=== PATIENT | male | born 1970 | race Caucasian/White ===

== ENCOUNTER 2019-11-27 08:34 | Day surgery (SDC) | payer OTHER ==
[~2019-11-27] VITALS: Ht 177.8 cm; Wt 91.6 kg
[~2019-11-27 08:34] MED LIST: ATOR1TAB19 PO; HYDR12.55 PO; NS 1,000 ML IV ONE
[2019-11-27] MEDS ORDERED: propofoL 200 MG/20 ML VIAL As Ordered ONE ×2 (08:56→09:30)
--- NOTE | 2019-11-27 09:50 | ROOR ---
Patient Name: Wm Myrick Procedure Date: 11/27/2019 9:20 AM Date of : 1970 Age: 49 Room: [facility] Gender: Male Note Status: Finalized Procedure: Colonoscopy Indications: Screening for colorectal malignant neoplasm Providers: DO Lourdes Real MD: GREGG ROSALES MD Requesting Provider: Medicines: Propofol per Anesthesia Complications: No immediate complications. Procedure: Pre-Anesthesia Assessment: - Prior to the procedure, a History and Physical was performed, and patient medications and allergies were reviewed. The patient is competent. The risks and benefits of the procedure and the sedation options and risks were discussed with the patient. All questions were answered and informed consent was obtained. Patient identification and proposed procedure were verified by the physician, the nurse, the music autographer and the military technician in the endoscopy suite. Mental Status Examination: alert and oriented. Airway Examination: normal oropharyngeal airway and neck mobility. Respiratory Examination: clear to auscultation. CV Examination: normal. Prophylactic Antibiotics: The patient does not require prophylactic antibiotics. Prior Anticoagulants: The patient has taken no previous anticoagulant or antiplatelet agents. ASA Grade Assessment: II - A patient with mild systemic disease. After reviewing the risks and benefits, the patient was deemed in satisfactory condition to undergo the procedure. The anesthesia plan was to use monitored anesthesia care (MAC). Immediately prior to administration of medications, the patient was re-assessed for adequacy to receive sedatives. The heart rate, respiratory rate, oxygen saturations, blood pressure, adequacy of pulmonary ventilation, and response to care were monitored throughout the procedure. The physical status of the patient was re-assessed after the procedure. The Colonoscope was introduced through the anus and advanced to the cecum, identified by appendiceal orifice and ileocecal valve. The colonoscopy was performed without difficulty. The patient tolerated the procedure well. Findings: Two pedunculated polyps were found in the sigmoid colon and descending colon. The polyps were 9 to 15 mm in size. These polyps were removed with a hot snare. Resection and retrieval were complete. Estimated blood loss was minimal. A few small-mouthed diverticula were found in the sigmoid colon. Non-bleeding internal hemorrhoids were found during retroflexion. The hemorrhoids were mild. Impression: - Two 9 to 15 mm polyps in the sigmoid colon and in the descending colon, removed with a hot snare. Resected and retrieved. - Diverticulosis in the sigmoid colon. - Non-bleeding internal hemorrhoids. Recommendation: - Patient has a contact number available for emergencies. The signs and symptoms of potential delayed complications were discussed with the patient. Return to normal activities tomorrow. Written discharge instructions were provided to the patient. - Repeat colonoscopy in 3 - 5 years for surveillance based on pathology results. - Return to my office at appointment to be scheduled. Kanu Acuña DO 11/27/2019 9:50:27 AM Electronically signed by Kanu Acuña DO Number of Addenda: 0 Note Initiated On: 11/27/2019 9:20 AM Estimated Blood Loss: Estimated blood loss was minimal.
[2019-11-27 10:14] VITALS: BP 126/76
== END 2019-11-27 10:16 | disposition home or self-care (01) ==
LOC: M OPP 08:34
PROVIDERS: ATTEND Surgery
DX: Z12.11 Encounter for screening for malignant neoplasm of colon (principal); K63.5 Polyp of colon; K64.8 Other hemorrhoids; K57.30 Diverticulosis of large intestine without perforation or abscess without bleeding; I10 Essential (primary) hypertension; E78.5 Hyperlipidemia, unspecified; Z79.899 Other long term (current) drug therapy

== ENCOUNTER 2020-05-14 09:37 | Emergency (ER) | payer OTHER ==
[~2020-05-14] VITALS: Ht 177.8 cm; Wt 98.5 kg
[~2020-05-14 09:37] MED LIST changes: -NS 1,000 ML IV ONE
[2020-05-14] MEDS ORDERED: NS 1,000 ML IV ONE (10:20)
[2020-05-14 10:22] LABS: BASO # 0.1 10^3/uL (0.0-0.2); BASO % 0.7 % (0.0-1.0); EOS # 0.2 10^3/uL (0.0-0.5); EOS % 2.1 % (0.0-3.0); HEMOGLOBIN 17.1 g/dl (13.5-17.5); LYMPH % 19.3 % (24.0-44.0); MEAN CORPUSCULAR HEMOGLOBIN 28.5 pg (27.0-33.0); MEAN CORPUSCULAR HGB CONC 33.5 g/dl (32.0-36.5); MONO # 1.1 10^3/uL (0.0-0.8); MONO % 9.9 % (2.0-8.0); NEUTROPHILS # 7.2 10^3/uL (1.5-8.5); NEUTROPHILS % 67.4 % (36.0-66.0); PLATELET COUNT, AUTOMATED 262 10^3/uL (150-450); WHITE BLOOD COUNT 10.6 10^3/uL (4.0-10.0)
[2020-05-14 10:38] LABS: INR 0.98; PROTHROMBIN TIME 13.2 SECONDS (12.5-14.3)
[2020-05-14 10:39] LABS: PARTIAL THROMBOPLASTIN TIME 29.2 SECONDS (24.2-38.5)
--- NOTE | 2020-05-14 10:39 | REP ---
INDICATION: L flank pain, hematuria COMPARISON: None TECHNIQUE: Axial noncontrast images from the lung bases to the pubic symphysis with coronal and sagittal reformations. This CT examination was performed using the following dose reduction techniques: Automated exposure control, adjustment of mA and/or kv according to the patient's size, and use of iterative reconstruction technique. FINDINGS: Acute left-sided obstructive uropathy with mild perinephric and periureteral stranding as well as hydronephrosis and proximal hydroureter appears to be secondary to intermittent ureteropelvic junction obstruction by 11 mm calculus which is now identified in the renal pelvis. Smaller nonobstructing left intrarenal calculi measure up to approximately 3 mm. Liver, spleen, pancreas, gallbladder, bilateral adrenal glands and right kidney are normal. The enteric system is without obstruction or acute inflammatory process. Normal terminal ileum and appendix are identified in the right lower quadrant. Scattered colonic and sigmoid diverticulosis noted without acute diverticulitis. Pelvis demonstrates normal bladder and mildly prominent prostate gland with mass effect on the base of the bladder. No ascites. No free air. No adenopathy. Abdominal aorta without aneurysm. Musculoskeletal structures are intact. Lung bases are clear. IMPRESSION: 1. Findings consistent with acute left-sided obstructive uropathy secondary to intermittent obstruction by 11 mm calculus in the UPJ/renal pelvis. Smaller nonobstructing intrarenal calculi measure up to 3 mm. <Electronically signed by Manjit Jean > 05/14/20 [id number]
[2020-05-14 10:57] LABS: ALBUMIN 3.9 GM/DL (3.2-5.2); BILIRUBIN,DIRECT 0.1 MG/DL (0.0-0.2); BILIRUBIN,TOTAL 0.8 MG/DL (0.2-1.0); TOTAL PROTEIN 7.3 GM/DL (6.4-8.2)
[2020-05-14 12:45] VITALS: BP 142/85
[2020-05-14] MEDS ORDERED: ZEST1TAB9 PO (15:24)
== END 2020-05-14 13:15 | disposition home or self-care (01) ==
LOC: M ED 09:37
DX: N20.0 Calculus of kidney (principal); I10 Essential (primary) hypertension
CPT/HCPCS: 74176; 80047; 80076; 81001; 81002; 82150; 82550; 83690; 85025; 85610; 85730; 96360; 96361; 99284; G0463

== ENCOUNTER 2020-05-18 09:38 | Day surgery (SDC) | payer OTHER ==
[2020-05-18] VITALS (7 sets, daily range): BP systolic 139–163; BP diastolic 70–87
[~2020-05-18] VITALS: Ht 177.8 cm; Wt 99.9 kg
[~2020-05-18 09:38] MED LIST changes: +LIDOCAINE 1% MDV 20ML VIAL SQ PRN; +LR 1,000 ML IV ONE; +ZEST1TAB9 PO; +ceFAZolin SOD 1 GM in D5W MINI-BAG PLUS 50 ML IV ONE; +ceFAZolin SOD 2 GM in IV 1 EA IV ONE
[2020-05-18] MEDS ORDERED: CONRAY-60 60% 50ML VIAL (Q9961) As Ordered ONE (10:54)
[2020-05-18] MEDS ORDERED: MIDAZOLAM INJ 2MG/2ML VIAL (J2250 PER 1MG) As Ordered ONE (11:08)
[2020-05-18] MEDS ORDERED: ACETAMINOPHEN 1000MG 100ML IV BTL (OFIRMEV) (J0131 PER 10MG) As Ordered ONE ×2 (11:38→14:38)
[2020-05-18] MEDS ORDERED: fentaNYL 100 MCG/2 ML INJECTION (J3010) As Ordered ONE ×2 (11:43→12:58)
[2020-05-18] MEDS ORDERED: LIDOCAINE 2% INJ 100 MG/5 ML SYRINGE As Ordered ONE (12:58)
[2020-05-18] MEDS ORDERED: propofoL 200 MG/20 ML VIAL As Ordered ONE (12:58)
[2020-05-18] MEDS ORDERED: METOCLOPRAMIDE INJ 10MG/2ML VIAL (J2765 PER 1) As Ordered ONE (12:58)
[2020-05-18] MEDS ORDERED: ONDANSETRON 4MG/2ML VIAL As Ordered ONE ×2 (12:58→14:22)
--- NOTE | 2020-05-18 13:07 | REP ---
INDICATION: LEFT URETERAL STENT PLACEMENT. COMPARISON: CT 05/14/2020. TECHNIQUE: C-arm views abdomen performed. FINDINGS: Left ureter is catheterized. Contrast partially opacifies a mildly prominent pelvocaliceal system. A left ureteral stent is placed. Proximal end is in the region of the left renal pelvis. The distal end is in the region of the urinary bladder. IMPRESSION: 54 seconds fluoroscopy time utilized. <Electronically signed by Kanu Vazquez > 05/18/20 [id number]
[2020-05-18] MEDS ORDERED: oxyCODONE 5MG TAB As Ordered ONE (13:17)
[2020-05-18] MEDS ORDERED: MORPHINE 2 MG/ML 1ML VIAL (J2270) IV PRN ×2 (13:20→14:25)
[2020-05-18] MEDS ORDERED: ONDANSETRON 4MG/2ML VIAL IV PRN ×2 (13:20→14:30)
[2020-05-18] MEDS ORDERED: METOCLOPRAMIDE INJ 10MG/2ML VIAL (J2765 PER 1) IV PRN ×2 (13:20→14:30)
[2020-05-18] MEDS ORDERED: fentaNYL 100 MCG/2 ML INJECTION (J3010) IV PRN ×2 (13:20→14:25)
[2020-05-18] MEDS ORDERED: oxyCODONE 5MG TAB PO PRN ×2 (13:20→14:25)
[2020-05-18] MEDS ORDERED: LR 1,000 ML IV SCH ×2 (13:20→14:30)
[2020-05-18] MEDS ORDERED: ROCURONIUM BROMIDE 50 MG/5 ML VIAL As Ordered ONE (13:32)
[2020-05-18] MEDS ORDERED: SUGAMMADEX SODIUM 500 MG/5 ML VIAL (BRIDION) As Ordered ONE (13:32)
--- NOTE | 2020-05-18 13:42 | ROOPDOC ---
[facility] Report Of Operation Report of Operation DATE OF PROCEDURE: 05/18/20 PREPROCEDURE DIAGNOSES: 11 mm left UPJ stone with hydronephrosis, small non obstructing left renal stones POSTPROCEDURE DIAGNOSES: Same PROCEDURE: Cystoscopy, Left Ureteroscopy, Left laser lithotripsy/stone basketting, left 6 algerian universal ureteral stent SURGEON: Corrine Kaur MD KNIT TUBING DYER: None ANESTHESIA: Gen ESTIMATED BLOOD LOSS: Approximately 10 mL. COMPLICATIONS: None REMARKS: Large stone seen and broken into small fragments. Stones sent for analysis. One of the smaller stones seen and lasered PROCEDURE NOTE: Patient is a 49-year-old gentleman who came in with gross hematuria and was found to have an 11 mm left UPJ/renal pelvic junction stone with intermittent obstruction. After discussing all different options, alternatives, risks, benefits he wanted to go ahead with ureteroscopic stone manipulation. He clearly understood the risk of not being able to break the stone completely and just leaving this stent in needing a second operative procedure. All options, alternatives, risks, benefits were discussed and informed consent was obtained. DESCRIPTION OF PROCEDURE: The patient was brought into the operating room. Sequential compression devices were in place and preoperative antibiotics had been given. General anesthesia was induced. He was placed in the lithotomy position and careful attention was placed is pressure points were well padded and protected. He was prepped and draped in usual fashion. A 21 Bolivian cystoscope was inserted. The urethra was noted to be open without evidence of lesions or strictures. He did have mild bilateral prostatic hypertrophy. Upon entering the bladder both ureteral orifices were seen. There was no evidence of stones, erythematous patches, lesions, or other abnormalities. At this point a 0.35 guidewire was placed up the left ureteral orifice into the left renal pelvis and left as a safety wire. A second wire was then placed and over this a rigid ureteroscope was attempted to pass but his ureter was too narrow. At this point the ureter reentry guide was placed over the wire and into the distal ureter and the flexible scope was passed. The stone was not seen at the UPJ. It was found in the renal pelvis towards the lower pole. Using laser fiber this was broken into small fragments. A stone basket was then used to grab 2 with a fragments. One of his 3 mm stones was also fragmented using the laser. A 6 Bolivian double-J ureteral stent was placed. The patient yanira erated the procedure well and was returned to the recovery room in stable condition. Bactrim DS will be sent through COR[facility]INE Washington MD May 18, 2020 13:29
[2020-05-18] MEDS ORDERED: BELLADONNA 16.2mg/OPIUM 60mg 1 EA SUPP PR PRN ×3 (14:45→17:30)
[2020-05-18] MEDS ORDERED: OXYC-517 PO (15:05)
[2020-05-18] MEDS ORDERED: LACTATED RINGER'S 500 ML IV ONE (15:25)
[2020-05-18] MEDS ORDERED: ONDANSETRON 4 MG TAB PO PRN (17:15)
[2020-05-19] MEDS: PERCOCET 5MG/325MG TAB PO PRN ×3 (00:57→13:18)
[2020-05-19 02:00] VITALS: BP 141/83
[2020-05-19 06:00] VITALS: BP 137/82
[2020-05-19 10:00] VITALS: BP 125/86
[2020-05-19 14:00] VITALS: BP 139/75
== END 2020-05-19 14:44 | disposition home or self-care (01) ==
LOC: M SDC 09:38 → M MSPAV 17:24 → M SDC 05-19 14:44
PROVIDERS: ATTEND Specialist
DX: N20.0 Calculus of kidney (principal); I10 Essential (primary) hypertension; Z79.899 Other long term (current) drug therapy
CPT/HCPCS: 52356; 74420; 82365; 88300; C1769; C1894; C2617; J0131; J0690; J2405; J2765; J3010; Q9961

== ENCOUNTER → 2020-05-26 | Outpatient (CLI) | payer OTHER ==
[~2020-05-26] MED LIST changes: -LIDOCAINE 1% MDV 20ML VIAL SQ PRN; -LR 1,000 ML IV ONE; +OXYC-517 PO; -ceFAZolin SOD 1 GM in D5W MINI-BAG PLUS 50 ML IV ONE; -ceFAZolin SOD 2 GM in IV 1 EA IV ONE
--- NOTE | 2020-05-26 11:17 | REP ---
INDICATION: CALCULUS OF KIDNEY. COMPARISON: Abdomen/pelvis CT dated 05/14/2020. TECHNIQUE: Single AP view of the abdomen and pelvis. FINDINGS: There is a left ureteral stent. The proximal pigtail is in the left renal pelvis but is uncoiled with the tip in a midpole calyx. Renal calcifications are noted at the upper pole and lower pole. The distal pigtail is satisfactorily demonstrated in the midline of the pelvis inferiorly with a normal cord old configuration. There are 2 small calcifications in the mid pelvis on the right. The comparison CT these appear to be phleboliths. The bowel gas pattern is normal. Skeletal structures are unremarkable. IMPRESSION: Left ureteral stent as described. Left renal calcifications as described. Pelvic calcifications as described. <Electronically signed by Kanu Mccormick > 05/26/20 [id number]
== END ==
LOC: M RAD 09:32
PROVIDERS: ATTEND Specialist
DX: N20.0 Calculus of kidney (principal); Z96.0 Presence of urogenital implants

== ENCOUNTER → 2021-02-16 | Outpatient (CLI) | payer OTHER ==
--- NOTE | 2021-02-16 15:26 | REP ---
INDICATION: ENLARGED RT TESTICLE, HX KIDNEY STONES, INFERTILIT COMPARISON: None. TECHNIQUE: Vazquez scale and color Doppler evaluation using linear and curved array transducer with color Doppler evaluation. FINDINGS: The testicles and epididymi are relatively normal in contour, size, echogenicity, vascularity and overall appearance. Few small scattered left-sided parenchymal calcifications are identified and otherwise likely chronic/nonspecific. There is no evidence for intratesticular mass lesion, infectious/inflammatory process, or torsion. Mild left-sided varicoceles are identified measuring up to approximately 3.8 mm diameter. Small left-sided hydrocele is also suspected. The patient's right-sided palpable mass corresponds to normal epididymal head which includes incidental 2 mm cyst. Right testicle measures 4.7 x 2.1 x 2.9 cm. Left testicle measures 4.7 x 2.3 x 3.0 cm. IMPRESSION: 1. Right-sided palpable mass corresponds to normal right epididymal head. 2. Few nonspecific primarily left-sided findings including varicocele and small hydrocele. <Electronically signed by Manjit Jean > 02/16/21 [id number]
== END ==
LOC: M RAD 07:12
PROVIDERS: ATTEND Physician Assistant
DX: N50.89 Other specified disorders of the male genital organs (principal); N20.0 Calculus of kidney

== ENCOUNTER → 2022-04-13 | Outpatient (CLI) | payer OTHER | LOC: M RAD 13:27 | PROVIDERS: ATTEND Specialist | DX: D29.31 Benign neoplasm of right epididymis (principal) ==